=== PATIENT | male | born 1970 | race Caucasian/White ===

== ENCOUNTER 2018-11-29 09:59 | Emergency (ER) | payer OTHER ==
[2018-11-29] MEDS ORDERED: FLUORESCEIN SODIUM 1 MG STRIP OP ONE (10:05)
[2018-11-29] MEDS ORDERED: PROPARACAINE 0.5% 15 ML OPHT DROP OP ONE (10:05)
--- NOTE | 2018-11-29 10:31 | EDPHY ---
H & P Time Seen by Provider: 11/29/18 10:05 HPI/ROS: CHIEF COMPLAINT: Foreign body sensation right eye HISTORY OF PRESENT ILLNESS: 48-year-old male otherwise healthy, awoke yesterday with foreign body sensation right eye. No exposure to high speed projectiles. No visual acuity changes. No diplopia. No headache. No nausea no vomiting. PHYSICAL EXAM (Prior to examination, patient consented to physical exam, hands were washed and my usual and customary physical exam procedures followed) 1) GENERAL: Well-developed, well-nourished, alert and oriented. Appears to be in no acute distress. 2) HEAD: Normocephalic 3) HEENT: sclera anicteric 4) LUNGS: Breathing comfortably. [5) OCULAR EXAM: Visual Acuity: Right eye 20/30, left eye 20/25, both eyes 20/20 Pupils:equal round and reactive to light EOMI Lids: no edema or swelling, upper and lower lids were everted and no foreign bodies were visualized, no areas of increased fluorescein uptake. Skin: no proptosis, no periorbital erythema or swelling, no vesicles, no pain with extraocular movements. Conjunctivae: not injected, no discharge, negative Nallely test. Cornea: exam with fluorescein shows an area of increased uptake at the 8 o' clock position consistent with corneal abrasion. Anterior chamber:normal, no hyphema or hypopyon Smoking Status: Never smoked Constitutional: Initial Vital Signs Temperature (C) 36.5 C 11/29/18 10:02 Heart Rate 63 11/29/18 10:02 Respiratory Rate 16 11/29/18 10:02 Blood Pressure 122/78 H 11/29/18 10:02 O2 Sat (%) 97 11/29/18 10:02 O2 Delivery Mode Room Air Allergies/Adverse Reactions: No Known Allergies Allergy (Unverified 11/29/18 10:02) Home Medications: Medication Instructions Recorded Hydrocodone/APAP 5/325 [[place] 1 tab PO Q6 PRN #7 tab 11/29/18 5/325 (RX)] Ofloxacin 0.3% [Ocuflox 0.3%] 2 drops EACHEYE QID #1 opht.btl 11/29/18 MDM/Departure - MDM Medications Given: Discontinued Medications Fluorescein Sodium (Bioglo) 1 mg OP EDNOW ONE Stop: 11/29/18 10:06 Last Admin: 11/29/18 10:28 Dose: 1 mg Proparacaine HCl (Alcaine 0.5%) 1 drops OP EDNOW ONE Stop: 11/29/18 10:06 Last Admin: 11/29/18 10:28 Dose: 1 drops ED Course/Re-evaluation: Patient has a corneal abrasion of the right eye up at the 8 o'clock position. He complains of foreign body sensation. I everted the upper and lower lids and do not visualize any foreign bodies or abnormality. His tetanus is up-to-date. I am initiating prophylactic topical antibiotic and recommend follow up with Dr. Yahs Curtis in 1 day. He feels comfortable being discharged. Patient feels comfortable being discharged. All questions and concerns addressed by myself. Patient given my usual and customary discharge precautions and instructions regarding their clinical impression. Care of patient under supervision of secondary supervising physician Dr Sadler . - Depart Disposition: Home, Routine, Self-Care Clinical Impression: Corneal abrasion, right Qualifiers: Encounter type: initial encounter Qualified Code(s): S05.01XA - Injury of conjunctiva and corneal abrasion without foreign body, right eye, initial encounter Condition: Good Instructions: Corneal Abrasion (ED) Additional Instructions: Return to the ER if you develop new or worsening symptoms. Prescriptions: Hydrocodone/APAP 5/325 [[place] 5/325 (RX)] 1 tab PO Q6 PRN #7 tab PRN Reason: Pain, Severe Ofloxacin 0.3% [Ocuflox 0.3%] 2 drops EACHEYE QID #1 opht.btl Referrals: Yash Curtis MD [Medical Doctor] - 1 day without fail
[2018-11-29 10:52] VITALS: BP 121/64
== END 2018-11-29 10:45 | disposition home or self-care (01) ==
DX: S05.01XA Injury of conjunctiva and corneal abrasion without foreign body, right eye, initial encounter (principal); X58.XXXA Exposure to other specified factors, initial encounter